=== PATIENT | male | born 1960 | race Caucasian/White ===

== ENCOUNTER 2018-06-15 10:50 | Inpatient (IN) | payer MEDICARE, MEDICAID ==
[~2018-06-15] VITALS: Ht 180.3 cm; Wt 71.3 kg
[2018-06-15] MEDS ORDERED: MORP60TA34 PO (11:07)
[2018-06-15] MEDS ORDERED: MORP1VIA2 PO (11:07)
[2018-06-15] MEDS ORDERED: SODIUM CHLORIDE 0.9% 1,000 ML IV ONE (11:59)
[2018-06-15] MEDS ORDERED: ONDANSETRON 2MG/ML, 2ML IVPush ONE ×2 (12:00→16:30)
[2018-06-15] MEDS ORDERED: SODIUM CHLORIDE FLUSH 10ML SYR IVF ONE (12:00)
[2018-06-15] MEDS ORDERED: SODIUM CHLORIDE 0.9% 1,000ML IVBOLUS ONE (12:00)
[2018-06-15 12:16] LABS: BASOPHILS # (AUTO) 0.11 x10^3/uL (0-0.1); BASOPHILS % (AUTO) 1 % (0-1); EOSINOPHILS # (AUTO) 0.05 x10^3/uL (0-0.4); EOSINOPHILS % (AUTO) 0 % (1-7); LYMPHOCYTES % (AUTO) 35 % (22-44); MD NO; MEAN CORPUSCULAR HEMOGLOBIN 29.2 pg (27.5-34.5); MEAN CORPUSCULAR HGB CONC 33.6 g/dL (33.2-36.2); MEAN CORPUSCULAR VOLUME 86.8 fL (81-97); MEAN PLATELET VOLUME 8.7 fL (7.4-10.4); MONOCYTES # (AUTO) 0.52 x10^3/uL (0.2-0.8); MONOCYTES % (AUTO) 4 % (2-9); NEUTROPHILS # (AUTO) 8.15 x10^3/uL (1.8-6.8); NEUTROPHILS % (AUTO) 60 % (42-75); PLATELET COUNT 255 x10^3/uL (130-400); RED BLOOD COUNT 5.53 x10^6/uL (4.38-5.82); RED CELL DISTRIBUTION WIDTH 14.2 % (9.4-14.8)
[2018-06-15 12:27] LABS: INTERNATIONAL NORMALIZED RATIO 1.08 (0.93-1.1); PROTHROMBIN TIME 11.4 Seconds (9.6-11.5)
[2018-06-15] MEDS ORDERED: PLEASE ENTER ALLERGIES MC SCH (12:30)
[2018-06-15 12:31] LABS: ALANINE AMINOTRANSFERASE 75 U/L (12-78); ANION GAP 6 mmol/L (5-15); CALCIUM 8.8 mg/dL (8.5-10.1); CHLORIDE 104 mmol/L (98-107); CREATININE 0.92 mg/dL (0.7-1.3)
[2018-06-15 12:34] LABS: ALKALINE PHOSPHATASE 85 U/L (45-117); BILIRUBIN,TOTAL 0.8 mg/dL (0.2-1.0); TOTAL PROTEIN 8.1 g/dL (6.4-8.2)
[2018-06-15] MEDS ORDERED: HYDROmorphone 2 MG/ML, 1ML ONE ×2 (12:35→17:49)
[2018-06-15] MEDS ORDERED: ONDANSETRON 2MG/ML, 2ML ONE ×2 (12:35→16:11)
[2018-06-15] MEDS: HYDROmorphone 2 MG/ML, 1ML IVPush PRN ×2 (12:53→17:53)
[2018-06-15] MEDS ORDERED: OMNIPAQUE 350 MG/ML, 100ML BOTTLE ONE (13:37)
--- NOTE | 2018-06-15 14:53 | NUR ---
Bedside SBAR report received from RNMila. Pt resting on gurney, aware of need for urine sample. Urinal at bedside.
--- NOTE | 2018-06-15 15:20 | NUR ---
Urine sample collected and sent to lab.
[2018-06-15 15:43] LABS: MICROSCOPIC NOT IND
[2018-06-15 15:46] LABS: CULTURE INDICATED? NO
--- NOTE | 2018-06-15 16:00 | NUR ---
Pt dry heaving and states that he is still feeling nauseous. Dr. Domingo made aware and new orders placed.
--- NOTE | 2018-06-15 16:15 | NUR ---
Pt medicated for nausea/vomiting.
--- NOTE | 2018-06-15 16:40 | NUR ---
Pt no longer dry heaving or vomiting, pt states he still feels nauseous. Pt resting on left side, remains on all monitors, sinus oxana.
--- NOTE | 2018-06-15 16:55 | NUR ---
Dr. Domingo at bedside to discuss ED findings and POC.
--- NOTE | 2018-06-15 17:15 | NUR ---
HR noted to be 41 bpm. Pt resting on left side, no complaint for RN, BP stable. EDT at bedside for EKG.
--- NOTE | 2018-06-15 17:54 | NUR ---
Jaylen CUNNINGHAM, at bedside to evaluate pt for admission.
[2018-06-15] MEDS: NICOTINE 7 MG/24 HR PATCH.TD24 TD SCH (18:30)
[2018-06-15] MEDS ORDERED: ACETAMINOPHEN 325 MG TABLET PO PRN (18:30)
--- NOTE | 2018-06-15 18:41 | NUR ---
RN to bedside to evaluate pt. Pt states that pain is decreased after medication. Pt requests that RN call his father, Efren Tracy, back to inform him of plan to admit. Efren Tracy: [phone]
[2018-06-15] MEDS ORDERED: SODIUM CHLORIDE FLUSH 10ML SYR IVF PRN (19:00)
[2018-06-15] MEDS ORDERED: HEPARIN 5,000 UNITS/ML, 1ML ONE (19:21)
[2018-06-15] MEDS: SODIUM CHLORIDE 0.9% 1,000 ML IV SCH (19:30)
[2018-06-15] MEDS: HEPARIN 5,000 UNITS/ML, 1ML SQ SCH (19:30)
--- NOTE | 2018-06-15 19:37 | NUR ---
Telephone SBAR report given to Deborah JOHNS. Pt made aware of new room assignment.
[2018-06-15 20:05] VITALS: BP 113/66
[2018-06-15] MEDS ORDERED: GABA300S PO (20:05)
[2018-06-15] MEDS ORDERED: NITR0.4T28 SL (20:05)
[2018-06-15] MEDS ORDERED: CLON0.2T PO (20:05)
[2018-06-15] MEDS ORDERED: NITROGLYCERIN 0.4 MG BOTTLE (25 TABS) SL ONE (20:31)
[2018-06-15] MEDS: NITROGLYCERIN 0.4 MG BOTTLE (25 TABS) SL PRN (20:33)
[2018-06-15] MEDS: morphine SULFATE 60 MG TABLET.ER PO SCH (21:00)
[2018-06-15] MEDS: GABAPENTIN 300 MG CAPSULE PO SCH (22:07)
[2018-06-15] MEDS: ONDANSETRON 2MG/ML, 2ML IVPush PRN (22:29)
[2018-06-16] VITALS (11 sets, daily range): BP systolic 100–137; BP diastolic 64–74
[2018-06-16] MEDS: HEPARIN 5,000 UNITS/ML, 1ML SQ SCH ×3 (03:41→21:48)
[2018-06-16 04:37] LABS: CLOSTRIDIUM DIFFICILE ANTIGEN NEGATIVE; CLOSTRIDIUM DIFFICILE TOXIN NEGATIVE (Negative)
[2018-06-16 06:07] LABS: BASOPHILS # (AUTO) 0.08 x10^3/uL (0-0.1); BASOPHILS % (AUTO) 1 % (0-1); EOSINOPHILS # (AUTO) 0.19 x10^3/uL (0-0.4); EOSINOPHILS % (AUTO) 2 % (1-7); LYMPHOCYTES # (AUTO) 4.04 x10^3/uL (1-3.4); LYMPHOCYTES % (AUTO) 39 % (22-44); MD NO; MEAN CORPUSCULAR HEMOGLOBIN 29.7 pg (27.5-34.5); MEAN CORPUSCULAR HGB CONC 33.9 g/dL (33.2-36.2); MEAN CORPUSCULAR VOLUME 87.7 fL (81-97); MEAN PLATELET VOLUME 9.1 fL (7.4-10.4); MONOCYTES # (AUTO) 0.62 x10^3/uL (0.2-0.8); MONOCYTES % (AUTO) 6 % (2-9); NEUTROPHILS # (AUTO) 5.32 x10^3/uL (1.8-6.8); NEUTROPHILS % (AUTO) 52 % (42-75); PLATELET COUNT 175 x10^3/uL (130-400); RED BLOOD COUNT 4.78 x10^6/uL (4.38-5.82); RED CELL DISTRIBUTION WIDTH 14.7 % (9.4-14.8)
[2018-06-16 06:25] LABS: ALBUMIN 3.2 g/dL (3.4-5.0); ANION GAP 8 mmol/L (5-15); CALCIUM 7.7 mg/dL (8.5-10.1); CHLORIDE 110 mmol/L (98-107)
[2018-06-16 06:32] LABS: ALANINE AMINOTRANSFERASE 55 U/L (12-78); ALKALINE PHOSPHATASE 70 U/L (45-117); BILIRUBIN,TOTAL 1.5 mg/dL (0.2-1.0); TOTAL PROTEIN 6.5 g/dL (6.4-8.2); TROPONIN I 0.018 ng/mL (0.000-0.045)
[2018-06-16] MEDS: GABAPENTIN 300 MG CAPSULE PO SCH ×3 (08:25→21:45)
[2018-06-16] MEDS: morphine SULFATE 60 MG TABLET.ER PO SCH ×3 (08:25→21:00)
[2018-06-16] MEDS: SODIUM CHLORIDE 0.9% 1,000 ML IV SCH (08:28)
[2018-06-16] MEDS: NITROGLYCERIN 0.4 MG BOTTLE (25 TABS) SL PRN (08:29)
[2018-06-16] MEDS: ONDANSETRON 2MG/ML, 2ML IVPush PRN (12:23)
[2018-06-16] MEDS ORDERED: PROMETHAZINE 12.5 MG SUPP PR PRN (14:30)
[2018-06-16] MEDS: LACTATED RINGERS 1,000 ML IV SCH (15:58)
[2018-06-16] MEDS: NICOTINE 7 MG/24 HR PATCH.TD24 TD SCH (18:30)
[2018-06-17] MEDS: LACTATED RINGERS 1,000 ML IV SCH ×2 (00:06→08:48)
[2018-06-17 02:00] VITALS: BP_SYST 126; BP_SYST 132; BP_SYST 135; BP_DIAS 76; BP_DIAS 77; BP_DIAS 85
[2018-06-17] MEDS: ONDANSETRON 2MG/ML, 2ML IVPush PRN (02:45)
[2018-06-17] MEDS: HEPARIN 5,000 UNITS/ML, 1ML SQ SCH ×3 (05:40→23:14)
[2018-06-17 05:54] LABS: BASOPHILS # (AUTO) 0.08 x10^3/uL (0-0.1); BASOPHILS % (AUTO) 1 % (0-1); EOSINOPHILS # (AUTO) 0.14 x10^3/uL (0-0.4); EOSINOPHILS % (AUTO) 2 % (1-7); LYMPHOCYTES # (AUTO) 3.94 x10^3/uL (1-3.4); LYMPHOCYTES % (AUTO) 41 % (22-44); MD NO; MEAN CORPUSCULAR HEMOGLOBIN 29.9 pg (27.5-34.5); MEAN CORPUSCULAR HGB CONC 34.3 g/dL (33.2-36.2); MEAN CORPUSCULAR VOLUME 87.4 fL (81-97); MEAN PLATELET VOLUME 8.6 fL (7.4-10.4); MONOCYTES # (AUTO) 0.63 x10^3/uL (0.2-0.8); MONOCYTES % (AUTO) 7 % (2-9); NEUTROPHILS # (AUTO) 4.85 x10^3/uL (1.8-6.8); NEUTROPHILS % (AUTO) 50 % (42-75); PLATELET COUNT 182 x10^3/uL (130-400); RED BLOOD COUNT 5.05 x10^6/uL (4.38-5.82)
[2018-06-17 06:03] LABS: CHLORIDE 106 mmol/L (98-107)
[2018-06-17 06:17] LABS: ALANINE AMINOTRANSFERASE 54 U/L (12-78); ALBUMIN 3.5 g/dL (3.4-5.0); ALKALINE PHOSPHATASE 72 U/L (45-117); ANION GAP 9 mmol/L (5-15); BILIRUBIN,TOTAL 1.5 mg/dL (0.2-1.0); CALCIUM 8.3 mg/dL (8.5-10.1); CREATININE 0.86 mg/dL (0.7-1.3); TOTAL PROTEIN 6.9 g/dL (6.4-8.2)
[2018-06-17 07:20] VITALS: BP_SYST 121; BP_SYST 124; BP_SYST 132; BP_DIAS 70; BP_DIAS 72; BP_DIAS 73
[2018-06-17] MEDS: GABAPENTIN 300 MG CAPSULE PO SCH ×3 (08:48→20:14)
[2018-06-17] MEDS: morphine SULFATE 60 MG TABLET.ER PO SCH ×3 (08:56→20:15)
[2018-06-17] MEDS ORDERED: HYDROCORTISONE 25 MG SUPP PR PRN (11:00)
[2018-06-17 13:48] VITALS: BP 141/95
[2018-06-17] MEDS ORDERED: SYSTANE ULTRA HOMEOTIC PRN (18:00)
[2018-06-17] MEDS: NICOTINE 7 MG/24 HR PATCH.TD24 TD SCH (18:07)
[2018-06-17 19:15] VITALS: BP 103/63
[2018-06-17 19:20] VITALS: BP 115/79
[2018-06-17 19:30] VITALS: BP 128/79
[2018-06-17] MEDS: SYSTANE ULTRA OP PRN (20:23)
[2018-06-18 02:08] VITALS: BP 113/71
[2018-06-18] MEDS: morphine SULFATE 15 MG TAB.IR PO PRN ×2 (02:22→18:03)
[2018-06-18] MEDS: SYSTANE ULTRA OP PRN ×3 (02:23→15:46)
[2018-06-18 05:02] LABS: ANION GAP 4 mmol/L (5-15); CALCIUM 8.5 mg/dL (8.5-10.1); CHLORIDE 105 mmol/L (98-107)
[2018-06-18 05:03] LABS: CREATININE 0.77 mg/dL (0.7-1.3)
[2018-06-18 08:00] VITALS: BP 123/77
[2018-06-18] MEDS: PROMETHAZINE 25MG TABLET PO PRN ×2 (08:52→18:06)
[2018-06-18] MEDS: GABAPENTIN 300 MG CAPSULE PO SCH ×3 (08:52→21:30)
[2018-06-18] MEDS: HEPARIN 5,000 UNITS/ML, 1ML SQ SCH ×3 (08:53→21:30)
[2018-06-18] MEDS: morphine SULFATE 60 MG TABLET.ER PO SCH ×3 (09:00→21:30)
[2018-06-18 13:50] VITALS: BP 100/55
[2018-06-18] MEDS: NICOTINE 7 MG/24 HR PATCH.TD24 TD SCH (15:43)
[2018-06-18 18:58] VITALS: BP 97/61
[2018-06-19 01:34] VITALS: BP 102/70
[2018-06-19] MEDS: morphine SULFATE 15 MG TAB.IR PO PRN ×3 (01:45→21:52)
[2018-06-19] MEDS: HEPARIN 5,000 UNITS/ML, 1ML SQ SCH ×2 (06:31→15:55)
[2018-06-19 07:35] VITALS: BP 114/73
[2018-06-19] MEDS: SYSTANE ULTRA OP PRN ×2 (09:30→15:30)
[2018-06-19] MEDS: PROMETHAZINE 25MG TABLET PO PRN (09:48)
[2018-06-19] MEDS: GABAPENTIN 300 MG CAPSULE PO SCH ×3 (09:49→21:52)
[2018-06-19] MEDS: morphine SULFATE 60 MG TABLET.ER PO SCH ×2 (09:49→15:55)
[2018-06-19] MEDS ORDERED: ONDANSETRON 4 MG TABLET PO PRN (10:30)
[2018-06-19] MEDS ORDERED: ONDANSETRON 2MG/ML, 2ML IVPush PRN (10:30)
[2018-06-19 13:47] VITALS: BP 112/66
[2018-06-19] MEDS: NICOTINE 7 MG/24 HR PATCH.TD24 TD SCH (18:21)
[2018-06-19 20:50] VITALS: BP 100/63
[2018-06-19 21:50] VITALS: BP 128/74
[2018-06-20 01:15] VITALS: BP 113/69
[2018-06-20] MEDS: HEPARIN 5,000 UNITS/ML, 1ML SQ SCH ×2 (01:18→08:35)
[2018-06-20] MEDS: morphine SULFATE 60 MG TABLET.ER PO SCH ×2 (01:19→08:35)
[2018-06-20 06:49] VITALS: BP 106/67
[2018-06-20] MEDS: GABAPENTIN 300 MG CAPSULE PO SCH (08:35)
[2018-06-20] MEDS: morphine SULFATE 15 MG TAB.IR PO PRN (11:28)
== END 2018-06-20 12:20 | disposition home or self-care (01) | DRG 394 ==
LOC: ED 13:45 → EDIP 18:07 → 4WST 20:28 → DCLOUNGE 06-20 11:54
PROVIDERS: ADMIT Internal Medicine; ATTEND Internal Medicine
DX: K52.1 Toxic gastroenteritis and colitis (principal); E87.1 Hypo-osmolality and hyponatremia; F11.23 Opioid dependence with withdrawal; E87.2 Acidosis; G90.9 Disorder of the autonomic nervous system, unspecified; Z66 Do not resuscitate; H16.209 Unspecified keratoconjunctivitis, unspecified eye; M48.00 Spinal stenosis, site unspecified; F12.90 Cannabis use, unspecified, uncomplicated; D18.00 Hemangioma unspecified site; D73.89 Other diseases of spleen; F17.210 Nicotine dependence, cigarettes, uncomplicated; G89.4 Chronic pain syndrome; H54.8 Legal blindness, as defined in USA; I10 Essential (primary) hypertension; I25.2 Old myocardial infarction; Z85.038 Personal history of other malignant neoplasm of large intestine; Z90.49 Acquired absence of other specified parts of digestive tract; E86.0 Dehydration; Z71.6 Tobacco abuse counseling; T40.2X5A Adverse effect of other opioids, initial encounter
CPT/HCPCS: 36415; 74177; 80048; 80053; 81003; 83690; 83735; 84484; 85025; 85610; 85730; 86759; 87046; 87324; 87427; 89055; 93005; 93306; 93880; 96361; 96372; 96374; 96375; 96376; 99285; G0378; J1170; J1644; J2405; Q0169; Q9967; J7030; J7120

== ENCOUNTER 2021-01-17 17:23 | Inpatient (IN) | payer MEDICARE, MEDICAID ==
[~2021-01-17] VITALS: Ht 177.8 cm; Wt 86.1 kg
[2021-01-19 01:26] VITALS: BP 150/79
== END 2021-01-19 06:25 | disposition left against medical advice (07) | DRG 682 ==
LOC: ED 18:35 → EDIP 18:58 → 4EST 20:54
PROVIDERS: ADMIT Internal Medicine; ATTEND Hospitalist
PROC: 0T9B70Z Drainage of Bladder with Drainage Device, Via Natural or Artificial Opening (ICD-10-PCS; principal; 2021-01-18)
DX: N17.0 Acute kidney failure with tubular necrosis (principal); E43 Unspecified severe protein-calorie malnutrition; E87.1 Hypo-osmolality and hyponatremia; C18.9 Malignant neoplasm of colon, unspecified; C78.7 Secondary malignant neoplasm of liver and intrahepatic bile duct; D84.9 Immunodeficiency, unspecified; S32.009A Unspecified fracture of unspecified lumbar vertebra, initial encounter for closed fracture; E87.2 Acidosis; I95.1 Orthostatic hypotension; I49.5 Sick sinus syndrome; F12.90 Cannabis use, unspecified, uncomplicated; B19.20 Unspecified viral hepatitis C without hepatic coma; F17.210 Nicotine dependence, cigarettes, uncomplicated; I10 Essential (primary) hypertension; G89.4 Chronic pain syndrome; I25.10 Atherosclerotic heart disease of native coronary artery without angina pectoris; K74.60 Unspecified cirrhosis of liver; W18.30XA Fall on same level, unspecified, initial encounter; E86.0 Dehydration; S62.101A Fracture of unspecified carpal bone, right wrist, initial encounter for closed fracture; Z79.891 Long term (current) use of opiate analgesic; Z20.822 Contact with and (suspected) exposure to COVID-19; Z95.0 Presence of cardiac pacemaker; I25.2 Old myocardial infarction; Z85.038 Personal history of other malignant neoplasm of large intestine; Z90.49 Acquired absence of other specified parts of digestive tract; Z88.1 Allergy status to other antibiotic agents; Z82.49 Family history of ischemic heart disease and other diseases of the circulatory system; Z83.3 Family history of diabetes mellitus; Z83.6 Family history of other diseases of the respiratory system; Y93.89 Activity, other specified; Y92.89 Other specified places as the place of occurrence of the external cause; Y99.8 Other external cause status